=== PATIENT | female | born 2000 | race Caucasian/White ===

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

== ENCOUNTER 2024-06-11 14:09 | Inpatient (IN) | payer BC, OTHER ==
[2024-06-11] MEDS ORDERED: Sodium Chloride 0.9% 20 ML SDV IV PRN (15:06)
[2024-06-11] MEDS ORDERED: Sodium Chloride 0.9% 10 ML Syringe FLUSH PRN (15:06)
[2024-06-11] MEDS ORDERED: Sodium Chloride 0.9% 2.5 ML Syringe FLUSH PRN (15:06)
[2024-06-11] MEDS: Ropivacaine HCl/PF 400 MG in Premix Bag 1 BAG EPIDUR SCH (15:27)
[2024-06-11] MEDS ORDERED: Phenylephrine HCl In 0.9% NaCl 1 MG/10 ML Syringe ONE (15:37)
[2024-06-11] MEDS ORDERED: Bupivacaine 0.5% 10 ML SDV ONE (15:37)
[2024-06-11] MEDS ORDERED: Ropivacaine HCl/PF 200 ML ONE (15:37)
[2024-06-11] MEDS ORDERED: Phenylephrine HCl In 0.9% NaCl 1 MG/10 ML Syringe IVPUSH PRN (16:09)
[2024-06-11] MEDS ORDERED: Bupivacaine 0.5% 10 ML SDV INJECT ONE (16:09)
[2024-06-11] MEDS ORDERED: ePHEDrine 50 MG/ML SDV IVPUSH PRN (16:09)
[2024-06-11] MEDS ORDERED: ePHEDrine 50 MG/ML SDV IM PRN (16:09)
[2024-06-11] MEDS ORDERED: dexmedeTOMIDine HCl 200 MCG/2 ML SDV EPIDUR SCH (16:15)
[2024-06-11 16:32] LABS: HEMATOCRIT 34.9 % (37.0-47.0); HEMOGLOBIN 11.4 g/dL (12.0-16.0); MEAN CORPUSCULAR HEMOGLOBIN 27.1 pg (28.0-32.0); MEAN CORPUSCULAR HGB CONC 32.7 g/dL (32.0-36.0); MEAN CORPUSCULAR VOLUME 83.1 fL (83.0-99.0); MEAN PLATELET VOLUME 11.3 fL (9.4-12.3); PLATELET COUNT,PLT 204 K/uL (150-400); WHITE BLOOD CELL COUNT,WBC 9.96 K/uL (3.9-11.3)
[2024-06-11] MEDS: Oxytocin/0.9 % Sodium Chloride 30 UNIT/500 ML BAG ONE (17:42)
[2024-06-11] MEDS ORDERED: Sodium Chloride 0.9% 100 ML ONE (17:55)
[2024-06-11] MEDS: ceFAZolin 2 GM Vial ONE (18:04)
[2024-06-11] MEDS ORDERED: Misoprostol 200 MCG Tab RECTAL PRN (18:58)
[2024-06-11] MEDS ORDERED: Oxytocin 10 Units/1 ML SDV IM PRN (18:58)
[2024-06-11] MEDS ORDERED: Methylergonovine 0.2 MG/1 ML Amp IM PRN (18:58)
[2024-06-11] MEDS ORDERED: Acetaminophen 500 MG Tab PO PRN (18:58)
[2024-06-11] MEDS ORDERED: Carboprost Tromethamine 250 MCG/1 mL Vial IM PRN (18:58)
[2024-06-11] MEDS ORDERED: Docusate Sodium 100 MG Cap PO PRN (18:58)
[2024-06-11 19:50] LABS: PH,UMBILICAL VENOUS 7.334 (7.25-7.45)
[2024-06-11] MEDS: Benzocaine/Menthol 20%-0.5% Spray 78 GM Cannister TOP PRN (20:46)
[2024-06-11] MEDS: Witch Hazel Medicated Pads 40/Jar TOP PRN (20:46)
[2024-06-11] MEDS: Ampicillin 2 GM Vial ONE (21:03)
[2024-06-12 06:03] LABS: BASOPHILS ABSOLUTE AUTO 0.02 K/uL (0.00-0.20); BASOPHILS PERCENT AUTO 0.2 % (0.0-1.0); EOSINOPHILS ABSOLUTE AUTO 0.18 K/uL (0.00-0.45); EOSINOPHILS PERCENT AUTO 1.5 % (0.0-6.0); HEMATOCRIT 33.1 % (37.0-47.0); HEMOGLOBIN 10.8 g/dL (12.0-16.0); IMMATURE GRAN ABSOLUTE AUTO 0.05 K/uL (0.00-0.05); IMMATURE GRAN PERCENT AUTO 0.4 % (0.0-0.4); LYMPHOCYTES ABSOLUTE AUTO 1.51 K/uL (1.00-4.80); MEAN CORPUSCULAR HEMOGLOBIN 27.3 pg (28.0-32.0); MEAN CORPUSCULAR HGB CONC 32.6 g/dL (32.0-36.0); MEAN CORPUSCULAR VOLUME 83.8 fL (83.0-99.0); MEAN PLATELET VOLUME 11.4 fL (9.4-12.3); MONOCYTES ABSOLUTE AUTO 0.61 K/uL (0.00-0.80); MONOCYTES PERCENT AUTO 5.2 % (0.0-8.0); NEUTROPHILS ABSOLUTE AUTO 9.28 K/uL (1.80-7.70); NEUTROPHILS PERCENT AUTO 79.7 % (41.0-71.0); PLATELET COUNT,PLT 168 K/uL (150-400); RED BLOOD CELL COUNT 3.95 M/uL (4.10-5.30); WHITE BLOOD CELL COUNT,WBC 11.65 K/uL (3.9-11.3)
[2024-06-12] MEDS: Ibuprofen 800 MG Tab PO PRN (13:34)
== END 2024-06-13 13:10 | disposition home or self-care (01) | DRG 560 ==
LOC: MW.OBCHECK 14:09 → MW.OB 14:09 → MW.OBCHECK 14:29 → MW.OB 14:30 → OBSVTOIN 17:40 → MW.OB 06-12 01:12
PROVIDERS: ADMIT Obstetrics & Gynecology; ATTEND Obstetrics & Gynecology
PROC: 10E0XZZ Delivery of Products of Conception, External Approach (ICD-10-PCS; principal; 2024-06-11)
PROC: 3E0R3BZ Introduction of Anesthetic Agent into Spinal Canal, Percutaneous Approach (ICD-10-PCS; 2024-06-11)
PROC: 00HU33Z Insertion of Infusion Device into Spinal Canal, Percutaneous Approach (ICD-10-PCS; 2024-06-11)
DX: O42.02 Full-term premature rupture of membranes, onset of labor within 24 hours of rupture (principal); Z37.0 Single live birth; O72.0 Third-stage hemorrhage; O34.03 Maternal care for unspecified congenital malformation of uterus, third trimester; Z3A.38 38 weeks gestation of pregnancy
CPT/HCPCS: 36415; 59025; 59409; 76810; 76810-26; 82803; 84112; 85025; 85027; 86592; 86850; 86900; 86901; A9270-GY; J0665; J0690; J2371; J2590; J2795